=== PATIENT | female | born 1955 | race Caucasian/White ===

== ENCOUNTER 2021-11-06 11:06 | Inpatient (IN) | payer OTHER ==
[2021-11-06 11:25] VITALS: BMI 23.8
[2021-11-06] MEDS ORDERED: FUROSEMIDE 40 MG/4 ML INJECTABLE VIAL IVPUSH ONE (11:39)
[2021-11-06 12:04] LABS: BASO % 0.4 % (0-2.0); EOS % 0.3 % (0-4.5); HEMATOCRIT 52.8 % (32.4-45.2); HEMOGLOBIN 17.3 GM/dL (10.7-15.3); LYMPH % 12.3 % (8-40); MCH 26.6 pg (25.7-33.7); MCHC 32.7 g/dl (32.0-36.0); MEAN CELL VOLUME 81.2 fl (80-96); MEAN PLT VOLUME 7.6 fl (7.5-11.1); MONO % 11.2 % (3.8-10.2); NEUT % 75.8 % (42.8-82.8); PLATELET COUNT 211 10^3/uL (134-434); RDW 18.3 % (11.6-15.6); WHITE BLOOD COUNT 6.1 K/mm3 (4.0-10.0)
[2021-11-06 12:25] LABS: INR 1.29 (0.83-1.09); PROTHROMBIN TIME (PATIENT) 14.9 SEC (9.7-13.0)
[2021-11-06 12:28] LABS: ACTIVATED PTT 31.3 SECONDS (25.2-36.5)
[2021-11-06 14:41] LABS: BASO % 0.8 % (0-2.0); EOS % 0.4 % (0-4.5); HEMATOCRIT 55.5 % (32.4-45.2); HEMOGLOBIN 17.4 GM/dL (10.7-15.3); LYMPH % 15.6 % (8-40); MCH 26.3 pg (25.7-33.7); MCHC 31.4 g/dl (32.0-36.0); MEAN CELL VOLUME 83.8 fl (80-96); MEAN PLT VOLUME 7.6 fl (7.5-11.1); MONO % 10.3 % (3.8-10.2); NEUT % 72.9 % (42.8-82.8); PLATELET COUNT 206 10^3/uL (134-434); RBC 6.62 M/mm3 (3.60-5.2); RDW 17.5 % (11.6-15.6)
[2021-11-06 14:49] LABS: EPI CELLS 1 /uL (0-25.1); HYALINE CASTS 0 /uL (0-3.1); PH,URINE 5.5 (5.0-8.0); URINE APPEARANCE CLEAR; URINE BACTERIA 12 /uL (0-1359); URINE BILIRUBIN NEGATIVE (NEGATIVE); URINE COLOR YELLOW; URINE GLUCOSE (UA) NEGATIVE (NEGATIVE); URINE KETONE NEGATIVE (NEGATIVE); URINE LEUK ESTERASE NEGATIVE (NEGATIVE); URINE NITRITE NEGATIVE (NEGATIVE); URINE PROTEIN NEGATIVE (NEGATIVE); URINE RBC 40 /uL (0-23.9); URINE UROBILINOGEN 0.2 mg/dL (0.2-1.0); URINE WBC 1 /uL (0-25.8)
[2021-11-06 15:02] LABS: CHLORIDE 99 mmol/L (98-107); SODIUM 141 mmol/L (136-145)
[2021-11-06 15:06] LABS: ALBUMIN 3.3 g/dl (3.4-5.0); ANION GAP 5 MMOL/L (8-16); CALCIUM 8.8 mg/dL (8.5-10.1); CO2 36 mmol/L (21-32); GLUCOSE,RANDOM 101 mg/dL (74-106)
[2021-11-06 15:09] LABS: CREATININE 0.3 mg/dL (0.55-1.3); SGOT/AST 25 U/L (15-37); SGPT/ALT 16 U/L (13-61)
[2021-11-06 15:11] LABS: BILIRUBIN,TOTAL 0.7 mg/dL (0.2-1); TOT PROT 6.4 g/dl (6.4-8.2)
[2021-11-06 15:12] LABS: ALK PHOS 63 U/L (45-117)
[2021-11-06] MEDS: ASPIRIN 81 MG CHEWABLE TABLETS PO ONE ×2 (16:24→19:14)
[2021-11-06] MEDS ORDERED: ASPIRIN 81 MG CHEWABLE TABLETS ONE (16:28)
[2021-11-06] MEDS ORDERED: ALBUTEROL SO4 HFA INHALER IH PRN (17:39)
[2021-11-06] MEDS: ATORVASTATIN CA 20 MG TABLET (FP) PO SCH (21:57)
[2021-11-06] MEDS: FAMOTIDINE 20 MG TABLET PO SCH (21:57)
[2021-11-07 07:10] LABS: CALCIUM 8.4 mg/dL (8.5-10.1)
[2021-11-07 07:11] LABS: ALBUMIN 3.2 g/dl (3.4-5.0); MAGNESIUM 2.1 mg/dL (1.8-2.4)
[2021-11-07 07:13] LABS: CREATININE 0.3 mg/dL (0.55-1.3); PHOSPHOROUS 5.7 mg/dL (2.5-4.9)
[2021-11-07 07:15] LABS: BILIRUBIN,TOTAL 0.6 mg/dL (0.2-1); TOT PROT 6.2 g/dl (6.4-8.2)
[2021-11-07 08:36] LABS: BASO % 0.5 % (0-2.0); EOS % 0.4 % (0-4.5); HEMATOCRIT 56.5 % (32.4-45.2); HEMOGLOBIN 17.3 GM/dL (10.7-15.3); LYMPH % 11.2 % (8-40); MCH 25.9 pg (25.7-33.7); MCHC 30.7 g/dl (32.0-36.0); MEAN CELL VOLUME 84.4 fl (80-96); MEAN PLT VOLUME 7.6 fl (7.5-11.1); MONO % 10.2 % (3.8-10.2); NEUT % 77.7 % (42.8-82.8); PLATELET COUNT 161 10^3/uL (134-434); RBC 6.69 M/mm3 (3.60-5.2); WHITE BLOOD COUNT 4.8 K/mm3 (4.0-10.0)
[2021-11-07] MEDS: ENOXAPARIN NA (PORCINE) 40 MG/0.4 ML DISP.SYRIN SQ SCH (10:11)
[2021-11-07] MEDS: CLOPIDOGREL BISULFATE 75 MG TABLET (FP) PO SCH (10:12)
[2021-11-07] MEDS: FAMOTIDINE 20 MG TABLET PO SCH ×2 (10:12→22:19)
[2021-11-07] MEDS: metoPROLOL SUCCINATE 25 MG TAB.SR.24H (FP) PO SCH (10:12)
[2021-11-07] MEDS: FUROSEMIDE 40 MG/4 ML INJECTABLE VIAL IVPUSH SCH (10:13)
[2021-11-07] MEDS: ATORVASTATIN CA 20 MG TABLET (FP) PO SCH (22:19)
[2021-11-08 07:39] LABS: HEMATOCRIT 52.2 % (32.4-45.2); HEMOGLOBIN 16.4 GM/dL (10.7-15.3); MCH 26.4 pg (25.7-33.7); MCHC 31.5 g/dl (32.0-36.0); MEAN CELL VOLUME 83.6 fl (80-96); MEAN PLT VOLUME 7.4 fl (7.5-11.1); PLATELET COUNT 127 10^3/uL (134-434); RBC 6.24 M/mm3 (3.60-5.2); RDW 17.7 % (11.6-15.6); WHITE BLOOD COUNT 7.2 K/mm3 (4.0-10.0)
[2021-11-08 07:54] LABS: CALCIUM 8.8 mg/dL (8.5-10.1)
[2021-11-08 07:55] LABS: BLOOD UREA NITROGEN 17.5 mg/dL (7-18); MAGNESIUM 1.9 mg/dL (1.8-2.4)
[2021-11-08 07:58] LABS: CREATININE 0.2 mg/dL (0.55-1.3); PHOSPHOROUS 3.5 mg/dL (2.5-4.9)
[2021-11-08] MEDS: CLOPIDOGREL BISULFATE 75 MG TABLET (FP) PO SCH (09:52)
[2021-11-08] MEDS: ENOXAPARIN NA (PORCINE) 40 MG/0.4 ML DISP.SYRIN SQ SCH (09:52)
[2021-11-08] MEDS: metoPROLOL SUCCINATE 25 MG TAB.SR.24H (FP) PO SCH (09:52)
[2021-11-08] MEDS: FUROSEMIDE 40 MG/4 ML INJECTABLE VIAL IVPUSH SCH (09:52)
[2021-11-08] MEDS: FAMOTIDINE 20 MG TABLET PO SCH ×2 (09:52→22:30)
[2021-11-08] MEDS: ATORVASTATIN CA 20 MG TABLET (FP) PO SCH (22:30)
[2021-11-09 07:39] LABS: BASO % 0.3 % (0-2.0); EOS % 0.2 % (0-4.5); HEMOGLOBIN 15.4 GM/dL (10.7-15.3); LYMPH % 8.3 % (8-40); MCH 25.6 pg (25.7-33.7); MCHC 30.8 g/dl (32.0-36.0); MEAN CELL VOLUME 83.1 fl (80-96); MEAN PLT VOLUME 7.2 fl (7.5-11.1); MONO % 10.1 % (3.8-10.2); NEUT % 81.1 % (42.8-82.8); PLATELET COUNT 119 10^3/uL (134-434); RBC 6.02 M/mm3 (3.60-5.2); RDW 17.7 % (11.6-15.6); WHITE BLOOD COUNT 4.6 K/mm3 (4.0-10.0)
[2021-11-09 07:57] LABS: CHLORIDE 92 mmol/L (98-107); SODIUM 140 mmol/L (136-145)
[2021-11-09 08:11] LABS: BLOOD UREA NITROGEN 12.2 mg/dL (7-18); CALCIUM 8.3 mg/dL (8.5-10.1); GLUCOSE,RANDOM 87 mg/dL (74-106)
[2021-11-09 08:15] LABS: CREATININE < 0.2 mg/dL (0.55-1.3); PHOSPHOROUS 2.8 mg/dL (2.5-4.9)
[2021-11-09 08:19] LABS: N-TERMINAL BNP 582.4 pg/ml (5-125)
[2021-11-09 08:35] LABS: ANION GAP 3 MMOL/L (8-16); CO2 > 45 mmol/L (21-32)
[2021-11-09] MEDS: FUROSEMIDE 40 MG/4 ML INJECTABLE VIAL IVPUSH SCH (09:59)
[2021-11-09] MEDS: ENOXAPARIN NA (PORCINE) 40 MG/0.4 ML DISP.SYRIN SQ SCH (09:59)
[2021-11-09] MEDS: metoPROLOL SUCCINATE 25 MG TAB.SR.24H (FP) PO SCH (09:59)
[2021-11-09] MEDS: FAMOTIDINE 20 MG TABLET PO SCH ×2 (09:59→21:58)
[2021-11-09] MEDS: CLOPIDOGREL BISULFATE 75 MG TABLET (FP) PO SCH (09:59)
[2021-11-09] MEDS: ATORVASTATIN CA 20 MG TABLET (FP) PO SCH (21:57)
[2021-11-09] MEDS: MIRTAZAPINE 15 MG TABLET (FP) PO SCH (22:00)
[2021-11-10 07:56] LABS: HEMATOCRIT 51.3 % (32.4-45.2); HEMOGLOBIN 15.8 GM/dL (10.7-15.3); MCH 25.4 pg (25.7-33.7); MCHC 30.8 g/dl (32.0-36.0); MEAN CELL VOLUME 82.5 fl (80-96); MEAN PLT VOLUME 7.6 fl (7.5-11.1); PLATELET COUNT 145 10^3/uL (134-434); RBC 6.22 M/mm3 (3.60-5.2); RDW 17.7 % (11.6-15.6); WHITE BLOOD COUNT 4.4 K/mm3 (4.0-10.0)
[2021-11-10 08:15] LABS: CHLORIDE 91 mmol/L (98-107); SODIUM 142 mmol/L (136-145)
[2021-11-10 08:18] LABS: BLOOD UREA NITROGEN 9.3 mg/dL (7-18); GLUCOSE,RANDOM 81 mg/dL (74-106)
[2021-11-10 08:21] LABS: CALCIUM 8.6 mg/dL (8.5-10.1); CREATININE 0.2 mg/dL (0.55-1.3); PHOSPHOROUS 2.6 mg/dL (2.5-4.9)
[2021-11-10 08:26] LABS: ANION GAP 6 MMOL/L (8-16); CO2 > 45 mmol/L (21-32)
[2021-11-10] MEDS: FUROSEMIDE 40 MG/4 ML INJECTABLE VIAL IVPUSH SCH (11:21)
[2021-11-10] MEDS: CLOPIDOGREL BISULFATE 75 MG TABLET (FP) PO SCH (11:21)
[2021-11-10] MEDS: FAMOTIDINE 20 MG TABLET PO SCH ×2 (11:21→21:52)
[2021-11-10] MEDS: ENOXAPARIN NA (PORCINE) 40 MG/0.4 ML DISP.SYRIN SQ SCH ×2 (11:22→11:42)
[2021-11-10] MEDS: metoPROLOL SUCCINATE 25 MG TAB.SR.24H (FP) PO SCH (11:22)
[2021-11-10] MEDS ORDERED: POTASSIUM CHLORIDE ORAL LIQUID 20 MEQ/15 ML PO ONE ×2 (12:15→20:45)
[2021-11-10] MEDS ORDERED: MAG HYDROX/AL HYDROX/SIMETH 30 ML UNIT-DOSE CUP PO PRN (12:24)
[2021-11-10] MEDS ORDERED: FUROSEMIDE 40 MG/4 ML INJECTABLE VIAL IVPUSH ONE ×2 (17:00→20:45)
[2021-11-10] MEDS: MIRTAZAPINE 15 MG TABLET (FP) PO SCH (21:52)
[2021-11-10] MEDS: ATORVASTATIN CA 20 MG TABLET (FP) PO SCH (21:52)
[2021-11-11 08:42] LABS: CHLORIDE 93 mmol/L (98-107); SODIUM 143 mmol/L (136-145)
[2021-11-11 08:45] LABS: CALCIUM 8.5 mg/dL (8.5-10.1)
[2021-11-11 08:46] LABS: BLOOD UREA NITROGEN 8.8 mg/dL (7-18); GLUCOSE,RANDOM 88 mg/dL (74-106); MAGNESIUM 2.1 mg/dL (1.8-2.4)
[2021-11-11 08:49] LABS: ANION GAP 5 MMOL/L (8-16); CO2 > 45 mmol/L (21-32); CREATININE 0.2 mg/dL (0.55-1.3); PHOSPHOROUS 2.9 mg/dL (2.5-4.9)
[2021-11-11] MEDS: CLOPIDOGREL BISULFATE 75 MG TABLET (FP) PO SCH (10:55)
[2021-11-11] MEDS: FAMOTIDINE 20 MG TABLET PO SCH ×2 (10:55→22:02)
[2021-11-11] MEDS: metoPROLOL SUCCINATE 25 MG TAB.SR.24H (FP) PO SCH (10:55)
[2021-11-11] MEDS: FUROSEMIDE 40 MG TABLET (FP) PO SCH (10:55)
[2021-11-11] MEDS: ENOXAPARIN NA (PORCINE) 40 MG/0.4 ML DISP.SYRIN SQ SCH (10:55)
[2021-11-11 11:08] LABS: HEMOGLOBIN 17.2 GM/dL (10.7-15.3); MCH 25.8 pg (25.7-33.7); MCHC 31.3 g/dl (32.0-36.0); MEAN CELL VOLUME 82.6 fl (80-96); MEAN PLT VOLUME 7.8 fl (7.5-11.1); PLATELET COUNT 152 10^3/uL (134-434); RDW 17.8 % (11.6-15.6); WHITE BLOOD COUNT 8.7 K/mm3 (4.0-10.0)
[2021-11-11] MEDS ORDERED: MIRTAZAPINE 15 MG TABLET (FP) PO SCH (22:00)
[2021-11-11] MEDS: ATORVASTATIN CA 20 MG TABLET (FP) PO SCH (22:02)
[2021-11-12] MEDS: metoPROLOL SUCCINATE 25 MG TAB.SR.24H (FP) PO SCH (09:52)
[2021-11-12] MEDS: CLOPIDOGREL BISULFATE 75 MG TABLET (FP) PO SCH (09:52)
[2021-11-12] MEDS: FUROSEMIDE 40 MG TABLET (FP) PO SCH (09:52)
[2021-11-12] MEDS: ENOXAPARIN NA (PORCINE) 40 MG/0.4 ML DISP.SYRIN SQ SCH (09:53)
[2021-11-12] MEDS: FAMOTIDINE 20 MG TABLET PO SCH ×2 (09:53→21:51)
[2021-11-12] MEDS: ATORVASTATIN CA 20 MG TABLET (FP) PO SCH (21:50)
[2021-11-12] MEDS: MELATONIN 5 MG TABLETS PO SCH (21:52)
[2021-11-13 08:46] LABS: CALCIUM 8.9 mg/dL (8.5-10.1)
[2021-11-13 08:47] LABS: ALBUMIN 2.6 g/dl (3.4-5.0); BLOOD UREA NITROGEN 18.9 mg/dL (7-18)
[2021-11-13 08:49] LABS: MAGNESIUM 2.1 mg/dL (1.8-2.4)
[2021-11-13 08:50] LABS: CREATININE 0.2 mg/dL (0.55-1.3); PHOSPHOROUS 3.6 mg/dL (2.5-4.9)
[2021-11-13 08:51] LABS: TOT PROT 5.7 g/dl (6.4-8.2)
[2021-11-13 08:52] LABS: BILIRUBIN,TOTAL 1.4 mg/dL (0.2-1)
[2021-11-13 09:08] LABS: BASO % 0.6 % (0-2.0); EOS % 0.7 % (0-4.5); HEMOGLOBIN 16.7 GM/dL (10.7-15.3); LYMPH % 9.9 % (8-40); MCH 25.2 pg (25.7-33.7); MCHC 30.4 g/dl (32.0-36.0); MEAN PLT VOLUME 7.3 fl (7.5-11.1); MONO % 8.7 % (3.8-10.2); NEUT % 80.1 % (42.8-82.8); PLATELET COUNT 130 10^3/uL (134-434); RBC 6.63 M/mm3 (3.60-5.2); RDW 18.3 % (11.6-15.6)
[2021-11-13] MEDS: FAMOTIDINE 20 MG TABLET PO SCH ×2 (09:50→21:29)
[2021-11-13] MEDS: CLOPIDOGREL BISULFATE 75 MG TABLET (FP) PO SCH (09:50)
[2021-11-13] MEDS: metoPROLOL SUCCINATE 25 MG TAB.SR.24H (FP) PO SCH (09:50)
[2021-11-13] MEDS: ENOXAPARIN NA (PORCINE) 40 MG/0.4 ML DISP.SYRIN SQ SCH (09:51)
[2021-11-13] MEDS: FUROSEMIDE 40 MG TABLET (FP) PO SCH (09:51)
[2021-11-13] MEDS: LIDOCAINE 5% TOPICAL PATCH TP SCH (10:09)
[2021-11-13] MEDS: ATORVASTATIN CA 20 MG TABLET (FP) PO SCH (21:29)
[2021-11-13] MEDS: MELATONIN 5 MG TABLETS PO SCH (21:29)
[2021-11-13] MEDS ORDERED: LIDOCAINE PATCH REMOVAL MC SCH (22:00)
[2021-11-14 08:36] VITALS: RESP 20
[2021-11-14 08:38] LABS: HEMATOCRIT 54.5 % (32.4-45.2); HEMOGLOBIN 16.5 GM/dL (10.7-15.3); MCH 25.5 pg (25.7-33.7); MCHC 30.3 g/dl (32.0-36.0); MEAN CELL VOLUME 84.1 fl (80-96); MEAN PLT VOLUME 7.5 fl (7.5-11.1); PLATELET COUNT 143 10^3/uL (134-434); RBC 6.48 M/mm3 (3.60-5.2); RDW 18.1 % (11.6-15.6); WHITE BLOOD COUNT 4.4 K/mm3 (4.0-10.0)
[2021-11-14] MEDS ORDERED: ACETAMINOPHEN 500 MG TABLET (FP) PO ONE (08:44)
[2021-11-14 08:53] LABS: CHLORIDE 84 mmol/L (98-107); SODIUM 137 mmol/L (136-145)
[2021-11-14 08:57] LABS: BLOOD UREA NITROGEN 10.2 mg/dL (7-18); CALCIUM 9.2 mg/dL (8.5-10.1); GLUCOSE,RANDOM 77 mg/dL (74-106)
[2021-11-14 08:58] LABS: ALBUMIN 2.8 g/dl (3.4-5.0)
[2021-11-14 08:59] LABS: CREATININE 0.2 mg/dL (0.55-1.3); SGOT/AST 11 U/L (15-37); SGPT/ALT 12 U/L (13-61); URIC ACID 4.7 mg/dL (2.6-7.2)
[2021-11-14 09:01] LABS: LDH 144 U/L (84-246); TOT PROT 6.1 g/dl (6.4-8.2)
[2021-11-14 09:02] LABS: BILIRUBIN,TOTAL 1.1 mg/dL (0.2-1)
[2021-11-14 09:03] LABS: ALK PHOS 51 U/L (45-117); ANION GAP 7 MMOL/L (8-16); CO2 > 45 mmol/L (21-32)
[2021-11-14] MEDS: metoPROLOL SUCCINATE 25 MG TAB.SR.24H (FP) PO SCH (09:20)
[2021-11-14] MEDS: CLOPIDOGREL BISULFATE 75 MG TABLET (FP) PO SCH (09:20)
[2021-11-14] MEDS: FAMOTIDINE 20 MG TABLET PO SCH ×2 (09:20→22:59)
[2021-11-14] MEDS: ENOXAPARIN NA (PORCINE) 40 MG/0.4 ML DISP.SYRIN SQ SCH (09:20)
[2021-11-14] MEDS: LIDOCAINE 5% TOPICAL PATCH TP SCH (09:20)
[2021-11-14] MEDS: FUROSEMIDE 40 MG TABLET (FP) PO SCH (09:20)
[2021-11-14] MEDS ORDERED: ACETAMINOPHEN 325 MG TABLET (FP) PO PRN (15:00)
[2021-11-14] MEDS ORDERED: ALBUTEROL SO4 HFA INHALER IH PRN (20:03)
[2021-11-14] MEDS ORDERED: MAG HYDROX/AL HYDROX/SIMETH 30 ML UNIT-DOSE CUP PO PRN (20:03)
[2021-11-14] MEDS ORDERED: MELATONIN 5 MG TABLETS PO SCH (22:00)
[2021-11-14] MEDS ORDERED: ATORVASTATIN CA 20 MG TABLET (FP) PO SCH (22:00)
[2021-11-14] MEDS: LIDOCAINE PATCH REMOVAL MC SCH ×2 (22:59)
[2021-11-15] MEDS: FAMOTIDINE 20 MG TABLET PO SCH (09:08)
[2021-11-15] MEDS ORDERED: CYCLOBENZAPRINE HCL 5 MG TABLET PO ONE (09:40)
[2021-11-15] MEDS ORDERED: MAG HYDROX/AL HYDROX/SIMETH 30 ML UNIT-DOSE CUP PO ONE (09:45)
[2021-11-15] MEDS ORDERED: LIDOCAINE 5% TOPICAL PATCH TP SCH (10:00)
[2021-11-15] MEDS ORDERED: CLOPIDOGREL BISULFATE 75 MG TABLET (FP) PO SCH (10:00)
[2021-11-15] MEDS ORDERED: metoPROLOL SUCCINATE 25 MG TAB.SR.24H (FP) PO SCH (10:00)
[2021-11-15] MEDS ORDERED: ENOXAPARIN NA (PORCINE) 40 MG/0.4 ML DISP.SYRIN SQ SCH (10:00)
[2021-11-15] MEDS ORDERED: FUROSEMIDE 40 MG TABLET (FP) PO SCH (10:00)
[2021-11-15] MEDS ORDERED: CYCLOBENZAPRINE HCL 5 MG TABLET PO PRN (13:02)
[2021-11-15 14:06] VITALS: BP 112/63; PULSE 91; TEMP 99
== END 2021-11-15 17:50 | DRG 291 ==
LOC: JER 11:06 → JERBED 17:08 → J4W 20:29 → J7W 11-14 11:48
PROVIDERS: ADMIT Internal Medicine
DX: I13.0 Hypertensive heart and chronic kidney disease with heart failure and stage 1 through stage 4 chronic kidney disease, or unspecified chronic kidney disease (principal); I50.33 Acute on chronic diastolic (congestive) heart failure; I24.8 Other forms of acute ischemic heart disease; J98.11 Atelectasis; F03.91 Unspecified dementia, unspecified severity, with behavioral disturbance; R64 Cachexia; J44.9 Chronic obstructive pulmonary disease, unspecified; J45.909 Unspecified asthma, uncomplicated; E78.00 Pure hypercholesterolemia, unspecified; I25.10 Atherosclerotic heart disease of native coronary artery without angina pectoris; E78.5 Hyperlipidemia, unspecified; D75.1 Secondary polycythemia; F17.210 Nicotine dependence, cigarettes, uncomplicated; N18.9 Chronic kidney disease, unspecified; I27.20 Pulmonary hypertension, unspecified; F03.90 Unspecified dementia, unspecified severity, without behavioral disturbance, psychotic disturbance, mood disturbance, and anxiety; R63.0 Anorexia; Z68.21 Body mass index [BMI] 21.0-21.9, adult
CPT/HCPCS: 0241U-QW; 36415; 70450-TC; 71045-TC-FY; 71275-TC; 72100-TC-FY; 74230-TC-FY; 76775-TC; 80048; 80053; 81003; 82668; 82962; 83615; 83735; 83880; 84100; 84484; 84550; 85025; 85027; 85379; 85610; 85730; 87086; 88300-TC; 92611-GN; 93005; 93010; 93306-TC; 93970-TC; 94761; 97162-GP; 99285-25; C9803-CS; Q9967; U0003; U0005

== ENCOUNTER → 2022-04-21 | Emergency (ER) | payer OTHER ==
[~2022-04-21] MED LIST: ACETAMINOPHEN 1000 MG/100 ML BAG IVPB ONE; ACETAMINOPHEN INJECTION 100 ML IVPB ONE; ALBUTEROL SO4 2.5/IPRATROPIUM 0.5 INH SOL 3 ML VIAL.NEB. NEB ONE; ASPIRIN 300 MG SUPP.RECT PR ONE; ASPIRIN 300 MG SUPP.RECT RC ONE; ASPIRIN 81 MG CHEWABLE TABLETS PO ONE; CEFTRIAXONE 1 GM in DEXTROSE 5%-WATER - 100 ML IVPB ONE; CEFTRIAXONE 1 GM/50 ML BAG ONE; ENOXAPARIN NA (PORCINE) 60 MG/0.6 ML DISP.SYRIN SQ ONE; KCL 10 MEQ IVPB 10 MEQ/100 ML INFUS.BAG IVPB ONE; LACTATED RINGERS SOLUTION 1000 ML INFUS.BAG IV ONE; MAGNESIUM SULF 50% (8.12 MEQ/2 ML-1 GM VIAL) IVPB ONE; MAGNESIUM SULFATE IN WATER 2 GM/50 ML IVPB IVPB ONE; NOREPINEPHRINE BITARTRATE 4 MG/4 ML ML IV ONE; SODIUM CHLORIDE 0.9% 500 ML INFUS.BAG IV ONE; SODIUM CHLORIDE 1,000 ML IV STA; TENECTEPLASE 50 MG VIAL IVPUSH ONE; TICAGRELOR 90 MG TABLET PO SCH; VANCOMYCIN 1 GM in D5W (PRE-DOCKED) 1,000 MG/250 ML IVPB ONE; VANCOMYCIN/WATER FOR INJ (PEG) 1,000 MG/200 ML BAG IVPB ONE
[2022-04-21 14:49] VITALS: BMI 23.3
[2022-04-21 14:55] VITALS: TEMP 99.3
[2022-04-21] MEDS: NOREPINEPHRINE BITARTRATE 4,000 MCG in DEXTROSE 5%-WATER - 496 ML IV SCH ×3 (15:05→21:15)
[2022-04-21 15:32] LABS: ALBUMIN 2.5 g/dl (3.4-5.0); BLOOD UREA NITROGEN 47.2 mg/dL (7-18)
[2022-04-21 15:35] LABS: CREATININE 0.8 mg/dL (0.55-1.3)
[2022-04-21 15:36] LABS: BILIRUBIN,TOTAL 0.8 mg/dL (0.2-1)
[2022-04-21 16:32] LABS: VENOUS BASE EXCESS 6.2 mmol/L (-2-2); VENOUS O2 SATURATION 74.1 % (70-80); VENOUS PCO2 69.1 mmHg (38-52); VENOUS PH 7.329 (7.310-7.410)
[2022-04-21 16:41] LABS: BASO % 0.2 % (0-2.0); HEMATOCRIT 54.5 % (32.4-45.2); HEMOGLOBIN 17.1 GM/dL (10.7-15.3); MCH 24.6 pg (25.7-33.7); MCHC 31.3 g/dl (32.0-36.0); MEAN CELL VOLUME 78.5 fl (80-96); MEAN PLT VOLUME 7.3 fl (7.5-11.1); MONO % 8.1 % (3.8-10.2); NEUT % 81.7 % (42.8-82.8); PLATELET COUNT 299 10^3/uL (134-434); RBC 6.94 M/mm3 (3.60-5.2); RDW 20.6 % (11.6-15.6); WHITE BLOOD COUNT 6.6 K/mm3 (4.0-10.0)
[2022-04-21] MEDS: ALBUTEROL SO4 2.5/IPRATROPIUM 0.5 INH SOL 3 ML VIAL.NEB. NEB SCH ×4 (16:52→17:30)
[2022-04-21 17:16] LABS: EPI CELLS 27 /uL (0-25.1); HYALINE CASTS 8 /uL (0-3.1); URINE APPEARANCE CLOUDY; URINE BACTERIA 55 /uL (0-1359); URINE BILIRUBIN NEGATIVE (NEGATIVE); URINE COLOR DK YELLOW; URINE GLUCOSE (UA) NEGATIVE (NEGATIVE); URINE KETONE NEGATIVE (NEGATIVE); URINE LEUK ESTERASE 1+ (NEGATIVE); URINE NITRITE NEGATIVE (NEGATIVE); URINE PROTEIN NEGATIVE (NEGATIVE); URINE RBC 24 /uL (0-23.9); URINE WBC 46 /uL (0-25.8)
[2022-04-21 19:14] LABS: MACROCYTOSIS 1+; OVALOCYTE 1+; TARGET CELLS 1+; TEAR DROP CELLS 1+
[2022-04-21 19:26] LABS: ANISOCYTOSIS 2+
[2022-04-21] MEDS: KCL 10 MEQ IVPB 10 MEQ/100 ML INFUS.BAG IVPB SCH ×2 (19:46→20:59)
[2022-04-21 20:22] LABS: BASO % 0.3 % (0-2.0); HEMATOCRIT 52.4 % (32.4-45.2); HEMOGLOBIN 16.5 GM/dL (10.7-15.3); LYMPH % 12.6 % (8-40); MCH 24.9 pg (25.7-33.7); MCHC 31.4 g/dl (32.0-36.0); MEAN CELL VOLUME 79.3 fl (80-96); MEAN PLT VOLUME 8.5 fl (7.5-11.1); NEUT % 76.1 % (42.8-82.8); PLATELET COUNT 142 10^3/uL (134-434); RBC 6.61 M/mm3 (3.60-5.2); RDW 20.2 % (11.6-15.6); WHITE BLOOD COUNT 5.8 K/mm3 (4.0-10.0)
[2022-04-21 20:58] LABS: VENOUS BASE EXCESS -2.4 mmol/L (-2-2); VENOUS O2 SATURATION 45.9 % (70-80)
[2022-04-21 20:59] LABS: VENOUS PH 7.101 (7.310-7.410)
[2022-04-21 21:00] LABS: VENOUS PCO2 104.8 mmHg (38-52)
[2022-04-21 21:34] VITALS: BP 88/59; PULSE 75; RESP 18
[2022-04-21 22:20] LABS: LACTIC ACID 2.3 mmol/L (0.4-2.0)
== END | disposition short-term general hospital (02) ==
LOC: JER 14:14
PROC: 3E033GC Introduction of Other Therapeutic Substance into Peripheral Vein, Percutaneous Approach (ICD-10-PCS; principal; 2022-04-21)
PROC: 3E023GC Introduction of Other Therapeutic Substance into Muscle, Percutaneous Approach (ICD-10-PCS; principal; 2022-04-21)
PROC: 3E0F7GC Introduction of Other Therapeutic Substance into Respiratory Tract, Via Natural or Artificial Opening (ICD-10-PCS; 2022-04-21)
DX: I21.4 Non-ST elevation (NSTEMI) myocardial infarction (principal); I95.9 Hypotension, unspecified
CPT/HCPCS: 0241U-QW; 36415; 70450-TC; 71045-TC-FY; 71275-TC; 80053; 81003; 82550; 82553; 82803; 83605; 84484; 85025; 86850; 86900; 86901; 87040; 87086; 87186; 93005; 93010; 99291; 99292; Q9967